=== PATIENT | male | born 1965 ===

== ENCOUNTER 2017-12-16 19:21 | Emergency (ER) | payer MEDICARE, MEDICAID ==
[2017-12-16] MEDS ORDERED: Sodium Chloride 0.9% 1,000 ML IV ONE (19:46)
--- NOTE | 2017-12-16 19:46 | C.PDOC ---
History Of Present Illness Patient presents to ED with complaints of generalized body weaknesses associated with abdominal pain, flank pain, back pain and burning sensation when urinating. Patient states symptoms began 4 days ago. Patient also reports he has not been having an appetite and stated taking trulicity. Denies fever, chills, or diarrhea. Time Seen by Provider: 12/16/17 19:46 Chief Complaint (Nursing): Male Genitourinary History Per: Patient History/Exam Limitations: no limitations Onset/Duration Of Symptoms: Days (4) Current Symptoms Are (Timing): Still Present Severity: Moderate Pain Scale Rating Of: 4 Quality Of Discomfort: Cramping, "Pain" Associated Symptoms: Back Pain, Urinary Symptoms. denies: Fever, Chills, Nausea , Vomiting, Diarrhea Alleviating Factors: None Recent travel outside of the [place]: No Additional History Per: Family Past Medical History Reviewed: Historical Data, Nursing Documentation, Vital Signs Vital Signs: Last Vital Signs Temp 98.2 F 12/16/17 19:34 Pulse 85 12/16/17 21:06 Resp 19 12/16/17 21:06 BP 115/75 12/16/17 21:06 Pulse Ox 97 12/16/17 21:06 - Medical History PMH: HTN Surgical History: No Surg Hx Family History: States: No Known Family Hx - Social History Hx Alcohol Use: Yes Hx Substance Use: No - Immunization History Hx Tetanus Toxoid Vaccination: No Hx Influenza Vaccination: No Hx Pneumococcal Vaccination: No Review Of Systems Constitutional: Positive for: Weakness (generalized ). Negative for: Fever, Chills Gastrointestinal: Positive for: Abdominal Pain, Other (Flank pain). Negative for: Nausea, Vomiting, Diarrhea Genitourinary: Positive for: Other (burning sensation when urinating) Musculoskeletal: Positive for: Back Pain Skin: Negative for: Rash Neurological: Negative for: Weakness, Numbness Psych: Negative for: Suicidal ideation Physical Exam - Physical Exam Appears: Non-toxic, No Acute Distress Skin: Warm, Dry Head: Normacephalic Eye(s): bilateral: Normal Inspection Oral Mucosa: Moist Neck: Trachea Midline, Supple Chest: Symmetrical, No Tenderness Cardiovascular: Rhythm Regular Respiratory: No Decreased Breath Sounds, No Rales, No Rhonchi, No Wheezing Gastrointestinal/Abdominal: Bowel Sounds, Soft, No Tenderness, No Distention, No Guarding, No Rebound Back: No CVA Tenderness, No Vertebral Tenderness, No Paraspinal Tenderness Extremity: Normal ROM, No Deformity Extremity: Bilateral: Normal Color And Temperature, Normal ROM Neurological/Psych: Oriented x3 Gait: Steady ED Course And Treatment - Laboratory Results Result Diagrams: 12/16/17 20:16 12/16/17 20:16 O2 Sat by Pulse Oximetry: 98 (RA) Pulse Ox Interpretation: Normal Progress Note: Administered Pepcid, Toradol, IV fluids, and Zofran. Ordered blood work and urinalysis. Disposition Counseled Patient/Family Regarding: Studies Performed, Diagnosis, Need For Followup, Rx Given - Disposition Referrals: Rachid Garcia MD [Staff Provider] - Disposition: HOME/ ROUTINE Disposition Time: 19:46 Condition: FAIR Prescriptions: Polyethylene Glycol 3350 [Miralax] 17 gm PO DAILY #270 ml Instructions: Gastroparesis (Delayed Gastric Emptying) (DC) Forms: [employer] (Yakut) Print Language: GHANAIAN - Clinical Impression Clinical Impression: Abdominal pain, Constipation - Scribe Statement The provider has reviewed the documentation as recorded by the Scribjen Mobley All medical record entries made by the Scribe were at my direction and personally dictated by me. I have reviewed the chart and agree that the record accurately reflects my personal performance of the history, physical exam, medical decision making, and the department course for this patient. I have also personally directed, reviewed, and agree with the discharge instructions and disposition.
[2017-12-16] MEDS ORDERED: Sodium Chloride 0.9% 1,000 ML ONE ×2 (20:01→21:14)
[2017-12-16 20:19] LABS: BASO # 0.1 K/uL (0.0-0.2); BASO % 0.7 % (0.0-2.0); EOS % 0.2 % (0.0-4.0); HEMOGLOBIN 15.3 g/dL (12.0-18.0); LYMPH # 1.6 K/uL (1.0-4.3); LYMPH % 20.5 % (20.0-40.0); MEAN CELL VOLUME 83.5 fL (80.0-94.0); MEAN CORPUSCULAR HEMOGLOBIN 29.6 pg (27.0-31.0); MEAN CORPUSCULAR HGB CONC 35.5 g/dL (33.0-37.0); MEAN PLATELET VOLUME 9.4 fL (7.2-11.7); MONO # 0.8 K/uL (0.0-0.8); MONO % 10.6 % (0.0-10.0); NEUT # 5.2 K/uL (1.8-7.0); NRBC % 0.1 % (0.0-2.0); RBC 5.18 Mil/uL (4.40-5.90); RED CELL DISTRIBUTION WIDTH 13.9 % (11.5-14.5); WHITE BLOOD COUNT 7.6 K/uL (4.8-10.8)
[2017-12-16 20:28] LABS: URINE BILIRUBIN NEGATIVE (NEGATIVE); URINE BLOOD 1+ (NEGATIVE); URINE CLARITY Clear (Clear); URINE COLOR Straw (YELLOW); URINE GLUCOSE (UA) NORMAL (Normal); URINE LEUKOCYTE ESTERASE NEG Leu/uL (Negative); URINE PROTEIN NEGATIVE (NEGATIVE); URINE UROBILINOGEN NORMAL mg/dL (0.2-1.0)
[2017-12-16 20:34] LABS: ALB/GLOB RATIO 1.1 (1.0-2.1); ALBUMIN 3.9 g/dL (3.5-5.0); ALT/SGPT 46 U/L (21-72); AST/SGOT 46 U/L (17-59); BLOOD UREA NITROGEN 10 mg/dL (9-20); CALCIUM 8.8 mg/dl (8.6-10.4); GFR AFRICAN-AMERICAN > 60; GFR NON-AFRICAN AMERICAN > 60
[2017-12-16 20:56] LABS: LIPASE 30 U/L (23-300)
[2017-12-16] MEDS ORDERED: Iohexol 300 100 ML IJ ONE (21:45)
--- NOTE | 2017-12-16 22:28 | CT ---
EXAM: CT Abdomen and Pelvis With Intravenous Contrast CLINICAL HISTORY: 52 years old, male; Pain; Abdominal pain; Epigastric; Additional info: Abd pain, mid epigastric TECHNIQUE: Axial computed tomography images of the abdomen and pelvis with intravenous contrast. All CT scans at this facility use one or more dose reduction techniques, viz.: automated exposure control; ma/kV adjustment per patient size (including targeted exams where dose is matched to indication; i.e. head); or iterative reconstruction technique. Coronal and sagittal reformatted images were created and reviewed. CONTRAST: 100 mL of OMNIPAQUE 300 administered intravenously. COMPARISON: No relevant prior studies available. FINDINGS: Lung bases: 11 mm calcified granuloma right lung base. Cystic changes in lung parenchyma. ABDOMEN: Liver: Hepatic steatosis. Hepatomegaly. Gallbladder and bile ducts: Unremarkable. No calcified stones. No ductal dilation. Pancreas: Unremarkable. No mass. No ductal dilation. Spleen: Splenomegaly. Adrenals: Unremarkable. No mass. Kidneys and ureters: Right kidney is unremarkable. Tiny left renal cortical cyst. No hydronephrosis. Stomach and bowel: Unremarkable. No obstruction. Appendix: No findings to suggest acute appendicitis. PELVIS: Bladder: Unremarkable. No mass. Reproductive: Unremarkable as visualized. ABDOMEN and PELVIS: Intraperitoneal space: Unremarkable. No free air. No significant fluid collection. Bones/joints: Lumbar disc disease, most severe at L5-S1. No acute fracture. No dislocation. Soft tissues: Unremarkable. Vasculature: Atherosclerotic vascular disease. No abdominal aortic aneurysm. Lymph nodes: Unremarkable. No enlarged lymph nodes. IMPRESSION: 1. No acute abnormality in the abdomen, or pelvis. 2. Remainder of findings as above.
[2017-12-16 23:22] VITALS: BP 109/68; PULSE 88; RESP 22; TEMP 98.5; O2SAT 97
== END 2017-12-16 23:22 | disposition home or self-care (01) ==
LOC: C.ER 19:21
DX: K59.00 Constipation, unspecified (principal); R10.9 Unspecified abdominal pain
CPT/HCPCS: 74177; 80053; 81001; 82948; 83690; 85025; 96361; 96374; 96375; 99284; J1885; J2405; J7040; Q9967